=== PATIENT | male | born 1990 | race Caucasian/White ===

== ENCOUNTER 2016-07-28 11:28 | Emergency (ER) | payer SELFPAY ==
[2016-07-28 11:48] VITALS: BP 131/68; PULSE 53; TEMP 98; BMI 32.5
--- NOTE | 2016-07-28 12:47 | PDOC ---
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 Patient was seen for initial injury on 07/05/2016 seen on 07/18/2016 for suture removal. Sutures removed some bloody purulent discharge was noted patient was placed on Bactrim. Patient denies currently any discharge however was unsure if he needed prescription renewal. Patient does have an appointment on 08/02/2016 for follow- up. Past History - Past Medical History Allergies/Adverse Reactions: Allergies Allergy/AdvReac Type Severity Reaction Status Date / Time Penicillins Allergy Verified 07/28/16 11:49 Home Medications: Ambulatory Orders Sulfamethoxazole/Trimethoprim [Bactrim Ds -] 1 tab PO BID #14 tablet 07/19/16 - Psycho/Social/Smoking Cessation Hx Anxiety: No Suicidal Ideation: No Smoking History: Never smoked Information on smoking cessation initiated: No Hx Alcohol Use: No Drug/Substance Use Hx: No Substance Use Type: None Review of Systems - Review of Systems Constitutional: No: Symptoms Reported Respiratory: No: Symptoms reported Musculoskeletal: No: Symptoms Reported, Joint Pain Integumentary: No: Bruising, Erythema, Pruritus, Rash Neurological: No: Symptoms reported, Tingling Hematologic/Lymphatic: No: Symptoms Reported All Other Systems: Reviewed and Negative *Physical Exam - Vital Signs Last Vital Signs Temp Pulse Resp BP Pulse Ox 98 F 53 L 18 131/68 99 07/28/16 11:44 07/28/16 11:44 07/28/16 11:44 07/28/16 11:44 07/28/16 11:44 - Physical Exam General Appearance: Yes: Appropriately Dressed. No: Apparent Distress Respiratory/Chest: positive: Lungs Clear, Normal Breath Sounds Cardiovascular: positive: Regular Rhythm, Regular Rate Musculoskeletal: positive: Normal Inspection Extremity: positive: Normal Capillary Refill Integumentary: positive: Other (deformity noted at the base of the nail with scabbing, no drainage, no foul odor.). negative: Erythema, Swelling, Ecchymosis , Bruising Neurologic: positive: Alert, Normal Mood/Affect Medical Decision Making - Medical Decision Making 07/28/16 12:37 A/P: Patient here because he was unsure if he needed prescription renewal for antibiotics patient denies any purulent discharge, there is scab noted at the base of the nail to the right second and third fingers. There is nail deformity noted. Patient does have follow-up on 08/02/2016. There is no evidence of infection there is no erythema, no warmth, no drainage. Patient is made aware that the deformity to the nail may cause improper growth of nail going forward. He verbalized understanding. *DC/Admit/Observation/Transfer Diagnosis at time of Disposition: Visit for wound check - Discharge Dispostion Disposition: HOME Condition at time of disposition: Good Admit: No - Patient Instructions Additional Instructions: Please keep area clean and dry. Follow up on August 02 for evaluation. Keep finger splinted until follow up.
== END 2016-07-28 12:54 | disposition home or self-care (01) ==
LOC: JERFT 11:28
DX: Z09 Encounter for follow-up examination after completed treatment for conditions other than malignant neoplasm (principal); L60.8 Other nail disorders
CPT/HCPCS: 99281-25